=== PATIENT | female | born 1950 | race Caucasian/White ===

== ENCOUNTER 2016-11-22 12:39 | Inpatient (IN) | payer OTHER ==
[~2016-11-22] VITALS: Ht 160 cm; Wt 72.3 kg
[2016-11-22] MEDS ORDERED: NEB-ALBUTEROL 2.5 MG/3 ML INH ONE (13:06)
[2016-11-22] MEDS: NEB-ALBUTEROL 2.5 MG/3 ML INH ONE ×2 (13:11→13:54)
[2016-11-22] MEDS ORDERED: DUONEB INH ONE ×2 (13:47)
[2016-11-22] MEDS ORDERED: NEB-ALBUTEROL 2.5 MG/3 ML INH PRN (16:00)
[2016-11-22] MEDS ORDERED: LEVOFLOXACIN 750 MG/150 ML 150 ML IV SCH (16:00)
[2016-11-22] MEDS: NICOTINE 14 MG/24 HR TDSY TRANSDERM SCH (16:09)
[2016-11-22] MEDS ORDERED: SALINE FLUSH 10 ML FLUSH PRN (16:10)
[2016-11-22] MEDS ORDERED: BISACODYL 10 MG SUPP RECTAL PRN (16:10)
[2016-11-22] MEDS ORDERED: MAG HYDROX 30 ML UDC PO PRN (16:10)
[2016-11-22] MEDS ORDERED: BISACODYL EC 5 MG TAB PO PRN (16:10)
[2016-11-22 18:43] VITALS: BP_SYST 113; BP_SYST 124; RESP 20; TEMP 98.7
[2016-11-22 18:45] VITALS: Ht 160 cm; Wt 72.3 kg
[2016-11-22] MEDS ORDERED: NEB-BUDESONIDE 0.5 MG INH SCH (19:00)
[2016-11-22] MEDS: DUONEB INH SCH ×2 (20:25→22:16)
[2016-11-22] MEDS: GUAIFENESIN ER 600 MG TABCR PO SCH (21:00)
[2016-11-22] MEDS: METHYLPRED SOD SUCC 125 MG/2 ML VIAL IV SCH (21:35)
[2016-11-22] MEDS: CEFTRIAXONE 1 GM in SODIUM CHLORIDE 0.9% 50 ML IV SCH (21:38)
[2016-11-22] MEDS: SALINE FLUSH 10 ML FLUSH SCH (21:40)
[2016-11-22] MEDS: DOCUSATE SOD 100 MG CAP PO SCH (21:41)
[2016-11-22] MEDS: CYCLOBENZAPRINE 10 MG TAB PO SCH (21:42)
[2016-11-22] MEDS: OXYBUTYNIN 5 MG TAB PO SCH (21:42)
[2016-11-22 22:15] VITALS: RESP 20
[2016-11-22] MEDS: NEB-BROVANA 15 MCG/2 ML INH SCH (22:16)
[2016-11-22] MEDS: ATENOLOL 25 MG TAB PO SCH (22:22)
[2016-11-22] MEDS: CITALOPRAM 20 MG TAB PO SCH (22:23)
[2016-11-22 23:00] VITALS: BP_SYST 96; RESP 18; TEMP 98.2
[2016-11-22] MEDS: AZITHROMYCIN 500 MG in SODIUM CHLORIDE 0.9% 250 ML IV SCH (23:33)
[2016-11-23] MEDS: METHYLPRED SOD SUCC 125 MG/2 ML VIAL IV SCH ×2 (01:40→06:23)
[2016-11-23 03:00] VITALS: BP_SYST 117; RESP 18; TEMP 98.2
[2016-11-23] MEDS: SODIUM CHLORIDE 0.9% FLUSH BAG 500 ML IV SCH (06:22)
[2016-11-23] MEDS: PANTOPRAZOLE 40 MG TAB PO SCH (06:23)
[2016-11-23] MEDS: DUONEB INH SCH ×5 (07:06→23:51)
[2016-11-23] MEDS: NEB-BROVANA 15 MCG/2 ML INH SCH ×2 (07:06→19:31)
[2016-11-23 07:37] VITALS: BP_SYST 122; RESP 18; TEMP 98
[2016-11-23] MEDS ORDERED: MISSING DOSE XX ONE (08:00)
[2016-11-23] MEDS: CYCLOBENZAPRINE 10 MG TAB PO SCH ×3 (08:06→20:12)
[2016-11-23] MEDS: OXYBUTYNIN 5 MG TAB PO SCH ×2 (08:06→20:12)
[2016-11-23] MEDS: SALINE FLUSH 10 ML FLUSH SCH ×2 (08:06→20:12)
[2016-11-23] MEDS: CITALOPRAM 20 MG TAB PO SCH (08:06)
[2016-11-23] MEDS: GUAIFENESIN ER 600 MG TABCR PO SCH ×2 (08:06→20:13)
[2016-11-23] MEDS: CEFTRIAXONE 1 GM in SODIUM CHLORIDE 0.9% 50 ML IV SCH (08:06)
[2016-11-23] MEDS: ATENOLOL 25 MG TAB PO SCH (08:06)
[2016-11-23] MEDS: NICOTINE 14 MG/24 HR TDSY TRANSDERM SCH (08:07)
[2016-11-23] MEDS: MELOXICAM 7.5 MG TAB PO SCH (08:07)
[2016-11-23] MEDS: Estradiol 1 MG TAB PO SCH (08:07)
[2016-11-23] MEDS: AZITHROMYCIN 500 MG in SODIUM CHLORIDE 0.9% 250 ML IV SCH (09:49)
[2016-11-23 11:26] VITALS: BP_SYST 117; RESP 18; TEMP 98.1
[2016-11-23] MEDS: ACETAMINOPHEN 325 MG TAB PO PRN (11:39)
[2016-11-23] MEDS: LORAZEPAM 0.5 MG TAB PO PRN ×2 (11:41→22:57)
[2016-11-23 15:16] VITALS: BP_SYST 120; RESP 18; TEMP 98.2
[2016-11-23] MEDS: METHYLPRED SOD SUCC 40 MG VIAL IV SCH ×2 (15:49→22:57)
[2016-11-23 19:37] VITALS: BP_SYST 110; RESP 18; TEMP 98.2
[2016-11-23] MEDS: DOCUSATE SOD 100 MG CAP PO SCH (20:12)
[2016-11-23 23:34] VITALS: BP_SYST 121; RESP 18; TEMP 97.9
[2016-11-24 03:53] VITALS: BP_SYST 115; RESP 18; TEMP 97.9
[2016-11-24] MEDS: PANTOPRAZOLE 40 MG TAB PO SCH (06:17)
[2016-11-24] MEDS: METHYLPRED SOD SUCC 40 MG VIAL IV SCH ×3 (06:18→21:14)
[2016-11-24] MEDS: SODIUM CHLORIDE 0.9% FLUSH BAG 500 ML IV SCH (06:18)
[2016-11-24] MEDS: NEB-BROVANA 15 MCG/2 ML INH SCH ×2 (06:23→20:19)
[2016-11-24] MEDS: DUONEB INH SCH ×5 (06:23→22:53)
[2016-11-24] MEDS: NICOTINE 14 MG/24 HR TDSY TRANSDERM SCH (09:00)
[2016-11-24] MEDS: GUAIFENESIN ER 600 MG TABCR PO SCH ×2 (09:00→20:06)
[2016-11-24] MEDS ORDERED: AZITHROMYCIN 250 MG TAB PO ONE (09:00)
[2016-11-24] MEDS: CYCLOBENZAPRINE 10 MG TAB PO SCH ×3 (09:00→20:03)
[2016-11-24] MEDS: CEFTRIAXONE 1 GM in SODIUM CHLORIDE 0.9% 50 ML IV SCH (09:18)
[2016-11-24] MEDS: SALINE FLUSH 10 ML FLUSH SCH ×2 (09:19→20:04)
[2016-11-24] MEDS: MELOXICAM 7.5 MG TAB PO SCH (09:19)
[2016-11-24] MEDS: OXYBUTYNIN 5 MG TAB PO SCH ×2 (09:19→20:03)
[2016-11-24] MEDS: CITALOPRAM 20 MG TAB PO SCH (09:20)
[2016-11-24] MEDS: Estradiol 1 MG TAB PO SCH (09:20)
[2016-11-24] MEDS: ATENOLOL 25 MG TAB PO SCH (09:21)
[2016-11-24 11:20] VITALS: BP_SYST 109; RESP 17; TEMP 97.5
[2016-11-24 15:59] VITALS: BP_SYST 129; RESP 18; TEMP 98.4
[2016-11-24 19:39] VITALS: BP_SYST 111; RESP 16; TEMP 97.7
[2016-11-24 19:40] VITALS: RESP 16; TEMP 97.7
[2016-11-24] MEDS: DOCUSATE SOD 100 MG CAP PO SCH (20:03)
[2016-11-24] MEDS: LORAZEPAM 0.5 MG TAB PO PRN (21:14)
[2016-11-25] VITALS (8 sets, daily range): BP systolic 121–134; RESP 16–18; TEMP 97.5–98.7
[2016-11-25] MEDS: PANTOPRAZOLE 40 MG TAB PO SCH (06:24)
[2016-11-25] MEDS: SODIUM CHLORIDE 0.9% FLUSH BAG 500 ML IV SCH (06:24)
[2016-11-25] MEDS: DUONEB INH SCH ×5 (07:44→23:17)
[2016-11-25] MEDS: NEB-BROVANA 15 MCG/2 ML INH SCH ×2 (07:44→19:46)
[2016-11-25] MEDS: NEB-BUDESONIDE 0.25 MG INH SCH ×2 (07:48→19:46)
[2016-11-25] MEDS: NICOTINE 14 MG/24 HR TDSY TRANSDERM SCH (09:00)
[2016-11-25] MEDS: GUAIFENESIN ER 600 MG TABCR PO SCH ×2 (09:00→20:17)
[2016-11-25] MEDS: METHYLPRED SOD SUCC 40 MG VIAL IV SCH ×2 (09:55→16:11)
[2016-11-25] MEDS: CEFTRIAXONE 1 GM in SODIUM CHLORIDE 0.9% 50 ML IV SCH (09:55)
[2016-11-25] MEDS: SALINE FLUSH 10 ML FLUSH SCH ×2 (09:55→20:13)
[2016-11-25] MEDS: CYCLOBENZAPRINE 10 MG TAB PO SCH ×3 (09:55→20:13)
[2016-11-25] MEDS: CITALOPRAM 20 MG TAB PO SCH (09:56)
[2016-11-25] MEDS: ATENOLOL 25 MG TAB PO SCH (09:56)
[2016-11-25] MEDS: OXYBUTYNIN 5 MG TAB PO SCH ×2 (09:56→20:13)
[2016-11-25] MEDS: MELOXICAM 7.5 MG TAB PO SCH (09:56)
[2016-11-25] MEDS: Estradiol 1 MG TAB PO SCH (09:56)
[2016-11-25] MEDS: DOCUSATE SOD 100 MG CAP PO SCH (20:13)
[2016-11-26] VITALS (7 sets, daily range): BP systolic 114–136; RESP 16–20; TEMP 97.7–98.5
[2016-11-26] MEDS: ACETAMINOPHEN 325 MG TAB PO PRN (00:14)
[2016-11-26] MEDS: METHYLPRED SOD SUCC 40 MG VIAL IV SCH (00:15)
[2016-11-26] MEDS: SODIUM CHLORIDE 0.9% FLUSH BAG 500 ML IV SCH (05:02)
[2016-11-26] MEDS: PANTOPRAZOLE 40 MG TAB PO SCH (06:18)
[2016-11-26] MEDS: DUONEB INH SCH ×2 (07:30→11:47)
[2016-11-26] MEDS: NEB-BROVANA 15 MCG/2 ML INH SCH (07:30)
[2016-11-26] MEDS: NEB-BUDESONIDE 0.25 MG INH SCH (07:30)
[2016-11-26] MEDS: CEFTRIAXONE 1 GM in SODIUM CHLORIDE 0.9% 50 ML IV SCH (08:28)
[2016-11-26] MEDS: SALINE FLUSH 10 ML FLUSH SCH (08:29)
[2016-11-26] MEDS: CITALOPRAM 20 MG TAB PO SCH (08:30)
[2016-11-26] MEDS: Estradiol 1 MG TAB PO SCH (08:30)
[2016-11-26] MEDS: ATENOLOL 25 MG TAB PO SCH (08:30)
[2016-11-26] MEDS: OXYBUTYNIN 5 MG TAB PO SCH (08:30)
[2016-11-26] MEDS: CYCLOBENZAPRINE 10 MG TAB PO SCH (08:30)
[2016-11-26] MEDS: MELOXICAM 7.5 MG TAB PO SCH (08:30)
[2016-11-26] MEDS: GUAIFENESIN ER 600 MG TABCR PO SCH (08:30)
[2016-11-26] MEDS: NICOTINE 14 MG/24 HR TDSY TRANSDERM SCH (08:32)
== END 2016-11-26 14:34 | disposition home or self-care (01) | DRG 189 ==
LOC: ENRESERVTM → CANRESERV → ENRESERVDT → ER 14:13 → ENPENDDIS 15:59 → EMR 15:59 → PCU2 18:27 → PCU 11-23 22:36 → PCU2 11-24 07:44
PROVIDERS: ADMIT Family Medicine Addiction Medicine; ATTEND Family Medicine Addiction Medicine
DX: J96.01 Acute respiratory failure with hypoxia (principal); J44.0 Chronic obstructive pulmonary disease with (acute) lower respiratory infection; J44.1 Chronic obstructive pulmonary disease with (acute) exacerbation; J20.9 Acute bronchitis, unspecified; F41.9 Anxiety disorder, unspecified; F32.9 Major depressive disorder, single episode, unspecified; K21.9 Gastro-esophageal reflux disease without esophagitis; R76.11 Nonspecific reaction to tuberculin skin test without active tuberculosis; F17.210 Nicotine dependence, cigarettes, uncomplicated; Z79.51 Long term (current) use of inhaled steroids
CPT/HCPCS: 36415; 36600; 71010; 80053; 82803; 83880; 85025; 86738; 87804; 94640; 94799; 96374; 99223; 99231; 99232; 99238